=== PATIENT | male | born 2000 | race Two or more races ===

== ENCOUNTER 2024-02-14 18:54 | Emergency (ER) | payer OTHER ==
[~2024-02-14] VITALS: Ht 182.9 cm; Wt 105.9 kg
[2024-02-14] MEDS ORDERED: CIPR0.3O OP (20:01)
[2024-02-14 21:31] VITALS: BP 132/90; PULSE 16; RESP 16; TEMP 98.4; O2SAT 99
== END 2024-02-14 21:33 | disposition home or self-care (01) ==
LOC: ER 18:54
DX: H10.9 Unspecified conjunctivitis (principal); Z79.899 Other long term (current) drug therapy